=== PATIENT | female | born 1985 | race Caucasian/White ===

== ENCOUNTER 2017-11-13 12:07 | Emergency (ER) | payer OTHER ==
[2017-11-13 12:07] VITALS: BMI 33.5
[2017-11-13 12:12] VITALS: BP 133/101; PULSE 103; RESP 18; TEMP 98; O2SAT 98
--- NOTE | 2017-11-13 13:04 | ED PDOC ---
HPI: Psych/Substance Abuse Time Seen by Provider: 11/13/17 12:50 Chief Complaint (Nursing): Anxiety Chief Complaint (Provider): Anxiety History Per: Patient History/Exam Limitations: no limitations Onset/Duration Of Symptoms: Days (x1 week) Current Symptoms Are (Timing): Still Present Suicide/Self Injury Attempted (Context): None Modifying Factor(s): None Pain Scale Rating Of: 0 Associated Symptoms: Anxiety, Depression. denies: Suicidal Thoughts, Suicidal Plan Involuntary Hold By: None Additional Complaint(s): Melody Arthur is a 32 year old female, with no significant past medical history, who presents to the emergency department complaining of anxiety and depression onset for x1 week. Patient reports that she has no energy. Patient recently had a baby on September 2016. She has not seen any doctor, and denies taking any medications. Patient doesn't drink, smoke or do drugs. She denies suicidal or homicidal ideations. No further medical complaints. PMD: None provided. Past Medical History Reviewed: Historical Data, Nursing Documentation, Vital Signs Vital Signs: Last Vital Signs Temp 98 F 11/13/17 12:09 Pulse 103 H 11/13/17 12:09 Resp 18 11/13/17 12:09 BP 133/101 H 11/13/17 12:09 Pulse Ox 98 11/13/17 12:09 - Medical History PMH: Asthma - Surgical History Surgical History: Cholecystectomy - Family History Family History: States: Diabetes (Mother), Hypertension (Mother) - Social History Current smoker - smoking cessation education provided: No Alcohol: None Drugs: Denies - Immunization History Hx Tetanus Toxoid Vaccination: Yes (2 years ago) Hx Influenza Vaccination: No Hx Pneumococcal Vaccination: No - Home Medications Home Medications: Ambulatory Orders Medication Instructions Recorded RX: Pnv95/Iron Fum/Folic Acid 1 tab PO DAILY 04/13/16 [ [facility]] RX: Ibuprofen [Motrin Tab] 600 mg PO Q6H PRN #30 tab 10/08/16 RX: Sennosides A and B [Senokot 17.2 mg PO HS PRN #20 tab 10/08/16 Tab] RX: oxyCODONE/Acetaminophen 1 tab PO Q6 PRN #20 tab 10/08/16 [Percocet 5/325 mg Tab] - Allergies Allergies/Adverse Reactions: Allergies Allergy/AdvReac Type Severity Reaction Status Date / Time shellfish derived Allergy SWELLING Verified 10/06/16 07:26 Review of Systems ROS Statement: Except As Marked, All Systems Reviewed And Found Negative Psych: Positive for: Anxiety, Depression. Negative for: Suicidal ideation (or homicidal ideation) Physical Exam - Reviewed Nursing Documentation Reviewed: Yes Vital Signs Reviewed: Yes - Physical Exam Appears: Positive for: Non-toxic. Negative for: Well (patient was crying on exam) Head Exam: Positive for: ATRAUMATIC, NORMAL INSPECTION Skin: Positive for: Normal Color, Warm, Dry Eye Exam: Positive for: Normal appearance Neck: Positive for: Painless ROM Cardiovascular/Chest: Positive for: Regular Rate, Rhythm. Negative for: Murmur Respiratory: Positive for: Normal Breath Sounds. Negative for: Respiratory Distress Gastrointestinal/Abdominal: Positive for: Normal Exam, Soft. Negative for: Tenderness, Guarding, Rebound Back: Positive for: Normal Inspection. Negative for: L CVA Tenderness, R CVA Tenderness, Vertebral Tenderness Extremity: Positive for: Normal ROM. Negative for: Deformity, Swelling Neurologic/Psych: Positive for: Alert, Oriented - ECG O2 Sat by Pulse Oximetry: 98 (RA) Pulse Ox Interpretation: Normal - Progress ED Course And Treament: SEEN BY CRISIS DISCHARGED HOME WITH DIAGNOSIS ANXIETY OUTPATIENT APPOINTMENT FOR 12/07 10:40AM Medical Decision Making Medical Decision Making: Initial Impression: Anxiety, psych eval Initial Plan: --reevaluation ~ Scribe Attestation: Documented by Wil Adler, acting as a scribe for Vic Finch PA-C. Provider Scribe Attestation: All medical record entries made by the Scribe were at my direction and personally dictated by me. I have reviewed the chart and agree that the record accurately reflects my personal performance of the history, physical exam, medical decision making, and the department course for this patient. I have also personally directed, reviewed, and agree with the discharge instructions and disposition. Disposition - Clinical Impression Clinical Impression: Anxiety - Patient ED Disposition Is Patient to be Admitted: No - Disposition Disposition: Routine/Home Disposition Time: 14:18 Condition: FAIR Additional Instructions: F/U 12/07 10:40AM FOR FOLLOW UP APPOINTMENT Instructions: Anxiety (ED) Forms: [facility] ([place])
== END 2017-11-13 14:30 | disposition home or self-care (01) ==
LOC: H.ER 12:07
DX: F41.9 Anxiety disorder, unspecified (principal); J45.909 Unspecified asthma, uncomplicated